=== PATIENT | female | born 1945 | race Caucasian/White ===

== ENCOUNTER → 2016-10-26 | Outpatient (CLI) | payer MEDICARE | LOC: RAD 08:11 | PROVIDERS: ATTEND Specialist | DX: R10.9 Unspecified abdominal pain (principal) | CPT/HCPCS: 74177 ==

== ENCOUNTER → 2016-11-13 | Outpatient (CLI) | payer MEDICARE ==
[~2016-11-13] MED LIST: AMINOPHYLLINE INJ/PF 250 MG/10 ML SDV IV ONE; REGADENOSON INJ 0.4 MG/5 ML DISP.SYRIN IV ONE
--- NOTE | 2016-11-14 07:43 | RADIOLOGY REPORT ---
STRESS TEST REPORT PATIENT NAME: ABRAHAM PAYTON ROOM#: DATE OF SERVICE: 11/13/16 AGE: 71Y ORDER#: [id number] REFERRING MD: JESSICA BRUNO M.D. INDICATION: Assessment of exertional dyspnea. Patient has a dilated aortic sinus, which could potentially involve coronary orifices. Therefore, rule out coronary artery disease. PROCEDURE PERFORMED REST/STRESS SINGLE ISOTOPE CARDIOLITE SPECT IMAGING WITH IV LEXISCAN STRESS AND GATED SPECT IMAGING CLINICAL HISTORY This is a 71 year old female with no known coronary artery disease, but recently has been having exertional dyspnea on climbing denominational steps and is known to have dilated aortic sinus. This could potentially involve coronary orifices. PROCEDURE The patient received IV Lexiscan 0.4 mg infused over 10 seconds and flushed. The resting heart rate was 67 bpm and increased to 92 bpm at end infusion. Resting blood pressure was 122/80 and increased to 140/70 at end infusion. The patient had symptoms of shortness of breath and no chest discomfort. No nausea or headache. Resting 12 lead EKG showed normal sinus rhythm at 68 bpm, mild nonspecific inferior ST changes. At end infusion, no ST changes were seen. ST-T wave changes were seen. Myocardial perfusion imaging was performed at rest 60 minutes following injection of 9.1 mCi Cardiolite. 10 seconds after IV Lexiscan injection, the patient was injected with 31.9 mCi Cardiolite and flushed. Gated post stress tomographic imaging was performed 60 minutes after stress. FINDINGS The overall quality of the study is fair. There was breast attenuation on the rest and stress images. The left ventricular cavity is noted to be normal in size on both the rest and stress studies. There is evidence of transient ischemic dilatation of the left ventricle visually. The computer calculated 1.07. SPECT images showed a moderate area of moderate reversible ischemia in the apex, apical anteroseptal wall, and apical anterior wall of the left ventricle. There was no fixed perfusion defect. Gated SPECT imaging showed a reduced contraction with normal motion of the apex, apical anteroseptal wall, apical anterior wall. The left ventricular ejection fraction was calculated to be 0.69. SUMMARY OF FINDINGS/IMPRESSION: 1. MYOCARDIAL PERFUSION IMAGING IS ABNORMAL. 2. THERE IS A MODERATE AREA OF MODERATE REVERSIBLE ISCHEMIA IN THE APEX, APICAL ANTERIOR WALL, AND APICAL ANTEROSEPTAL WALL WITH 3. NO FIXED PERFUSION DEFECTS. OVERALL, 4. LEFT VENTRICULAR SYSTOLIC FUNCTION WAS VERY NORMAL AT 0.69 AND 5. THERE WAS REDUCED CONTRACTION IN THE ABOVE MENTIONED ISCHEMIC AREA. 6. NO PRIOR STUDY on file FOR COMPARISON. INTERPRETING PHYSICIAN: JESSICA BRUNO M.D. /: [facility] TT: [id number] ID: [id number] /: [id number] TD: [id number] JOB: [id number] cc:JESSICA BRUNO M.D. > MTDVitaliy
== END ==
LOC: RAD 06:22
PROVIDERS: ATTEND Internal Medicine Cardiovascular Disease
DX: R07.2 Precordial pain (principal)
CPT/HCPCS: 93017; 78452; A9500; J2785; J0280; Q9969

== ENCOUNTER 2017-03-12 07:25 | Day surgery (SDC) | payer MEDICARE ==
--- NOTE | 2017-03-07 13:42 | HISTORY AND PHYSICAL E ---
History and Physical NAME: ABRAHAM PAYTON : 1945 AGE: 71Y ADMITTED: 03/12/2017 ROOM: CHIEF COMPLAINT: Reflux, abdominal pain, history of gastric polyp. HISTORY OF PRESENT ILLNESS: The patient is known to me over the years. She does have benign gastric polyp. She underwent upper endoscopy in 2011. The patient has no ulcers, atypical chest pain. She does have history of irritable bowel syndrome with diarrhea. Cardiac cath; no evidence of coronary artery disease. She does have a history of gastric polyps. Cardiac enzymes negative. Colonoscopy in 2010 showed adenomatous polyp, transverse colon; sigmoid polyp and sigmoid polyp adenoma. The patient did have multiple upper scopes and colonoscopies. ALLERGIES: MACROBID. PHYSICAL EXAMINATION: VITAL SIGNS: Blood pressure 130/80, pulse 80, respirations 20, temp is 98. HEAD, EYES, EARS, NOSE, THROAT: Normal. NECK: Supple. CARDIOVASCULAR: Normal. LUNGS: Clear. ABDOMEN: Soft. NEUROLOGIC: Exam negative. CONCLUSION: 1. Gastroesophageal reflux. 2. Abdominal pain. 3. History of adenoma, left adrenal. 4. Question abdominal aortic aneurysm. 5. Gastric polyp. 6. Diverticulosis. PLAN: Upper scope, 03/12. DICTATING PHYSICIAN: BLUE CARDONA M.D. [id number] PHY#: [id number] ID: [id number] JOB#: [id number] ACCT: [id number] cc:BLUE CARDONA M.D. >
[2017-03-12] MEDS ORDERED: ONDANSETRON HCL INJ/PF 4 MG/2 ML SDV ONE (07:33)
[2017-03-12] MEDS ORDERED: GLYCOPYRROLATE INJ 0.4 MG/2 ML VIAL ONE (07:33)
[2017-03-12] MEDS ORDERED: NALOXONE HCL INJ/PF 0.4 MG/1 ML SDV ONE (07:33)
[2017-03-12] MEDS ORDERED: FENTANYL CITRATE INJ/PF 100 MCG/2 ML AMPUL ONE (07:34)
[2017-03-12] MEDS ORDERED: EPINEPHRINE INJ 1 MG/10 ML DISP.SYRIN ONE (07:35)
[2017-03-12] MEDS ORDERED: FLUMAZENIL INJ 0.5 MG/5 ML VIAL IV ONE (07:35)
[2017-03-12] MEDS: MIDAZOLAM 2 MG/2 ML INJ ONE ×2 (08:17→08:21)
[2017-03-12 09:31] VITALS: BP 110/65
[2017-03-12 09:45] LABS: ABSOLUTE EOSINOPHILS # (AUTO) 0.1 10^3/uL (0.0-0.6); ABSOLUTE MONOCYTES (AUTO) 0.3 10^3/uL (0.1-1.4); ABSOLUTE NEUT (AUTO) 2.4 10^3/uL (1.7-8.2); BASOPHILS % (AUTO) 0.8 % (0-2); EOSINOPHILS % (AUTO) 1.7 % (0-6); HEMATOCRIT 35.7 % (36.0-47.0); HEMOGLOBIN 12.1 g/dL (12.0-15.5); HGB HCT DIFFERENCE 0.6; LYMPHOCYTES % (AUTO) 26.7 % (13-45); MEAN CORPUSCULAR HEMOGLOBIN 32.2 pg (27.0-33.4); MEAN CORPUSCULAR HGB CONC 33.9 g/dL (32.0-36.0); MEAN CORPUSCULAR VOLUME 95 fl (80-97); MONOCYTES % (AUTO) 7.3 % (3-13); RED BLOOD COUNT 3.76 10^6/uL (3.72-5.28); SEGMENTED NEUTROPHILS % (AUTO) 63.5 % (42-78); WHITE BLOOD COUNT 3.8 10^3/uL (4.0-10.5)
[2017-03-12 10:00] LABS: ALANINE AMINOTRANSFERASE 44 U/L (9-52); ALKALINE PHOSPHATASE 48 U/L (38-126); AMYLASE 49 U/L (30-110); ANION GAP 9 (5-19); ASPARTATE AMINO TRANSFERASE 27 U/L (14-36); BILIRUBIN,DIRECT 0.2 mg/dL (0.0-0.4); BILIRUBIN,TOTAL 0.9 mg/dL (0.2-1.3); BLOOD UREA NITROGEN 22 mg/dL (7-20); CALCIUM 9.4 mg/dL (8.4-10.2); CARBON DIOXIDE 28 mmol/L (22-30); CHLORIDE 105 mmol/L (98-107); CREATININE RESULT 0.72 mg/dL (0.52-1.25); GLUCOSE 103 mg/dL (75-110); LIPASE 44.8 U/L (23-300); POTASSIUM 3.8 mmol/L (3.6-5.0); SODIUM 141.6 mmol/L (137-145)
[2017-03-12 10:33] LABS: CARCINOEMBRYONIC ANTIGEN 1.1 ng/mL (<3.0)
--- NOTE | 2017-03-12 12:05 | DISCHARGE SUMMARY E ---
Discharge Summary NAME: ABRAHAM PAYTON : 1945 AGE: 71Y ADMITTED: 03/12/2017 DISCHARGED: 03/12/2017 PROCEDURE: EGD and biopsy. HISTORY: Patient is a 71-year-old female who presents with abdominal pain. She does have a remote history of gastric polyp. Underwent upper scope today. It shows no ulcers. She did have mild gastritis, mild esophagitis, mild duodenitis. The previous gastric polyp was not visualized on today's exam. It is usually in the antrum. I just did not see any polyp. No evidence of malignancy. Biopsy obtained for H. pylori. DISCHARGE PLAN: We will obtain lab studies. We will obtain amylase, lipase, chem profile, and CBC. Patient to see us in the office in the next few days. She does have history of adenoma polyps. We will obtain CA19-9 and CEA. DICTATING PHYSICIAN: BLUE CARDONA M.D. [id number] PHY#: [id number] ID: [id number] JOB#: [id number] ACCT: [id number] cc:BLUE CARDONA M.D. >
--- NOTE | 2017-03-12 12:06 | OPERATIVE REPORT E ---
Operative Report NAME: ABRAHAM PAYTON : 1945 AGE: 71Y DATE OF SURGERY: ROOM: PREOPERATIVE DIAGNOSIS: Abdominal pain, history of gastric polyp. POSTOPERATIVE DIAGNOSIS: Esophagitis, mild. Gastritis, mild. Duodenitis, mild. OPERATION: Esophagoscopy, gastroscopy, duodenoscopy. SURGEON: BLUE CARDONA M.D. ANESTHESIA: Versed 3, fentanyl 50. TISSUE REMOVED OR ALTERED: Gastric biopsy. PROCEDURE: The baby scope was passed under guided vision. No difficulties. Esophagoscopy: Junction at 40. Mild esophagitis. No stricture, no hernia, no malignancy. Gastroscopy: Mild diffuse gastritis. Some small amount of food retained in the stomach. Yellowish food material in the stomach. The patient has definite submucosal gastric polyp in the past; today, I just could not see the gastric polyp. There was some gastritis. Biopsy obtained for H. pylori. Duodenoscopy: The bulb was fairly well visualized and shows mild duodenitis. Descending duodenum, mild duodenitis. CONCLUSION: No ulcers. Mild esophagitis. Mild gastritis. Mild duodenitis. The patient tolerated the procedure and will be discharged in stable condition. DICTATING PHYSICIAN: BLUE CARDONA M.D. [id number] Y#: [id number] ID: [id number] JOB#: [id number] ACCT: [id number] cc:BLUE CARDONA M.D. >
== END 2017-03-12 09:35 | disposition home or self-care (01) ==
LOC: END 07:25
PROVIDERS: ATTEND Specialist
PROC: 0DB68ZX Excision of Stomach, Via Natural or Artificial Opening Endoscopic, Diagnostic (ICD-10-PCS; principal; 2017-03-12 08:00)
DX: K31.7 Polyp of stomach and duodenum (principal); K21.0 Gastro-esophageal reflux disease with esophagitis; K31.9 Disease of stomach and duodenum, unspecified; K29.80 Duodenitis without bleeding; R97.8 Other abnormal tumor markers; Z88.1 Allergy status to other antibiotic agents; K58.9 Irritable bowel syndrome, unspecified
CPT/HCPCS: 43239; 36415; 86301; 82150; 82378; 83690; 85025; 80053; 88342 ×2; 88305 ×2; J2250; J3010; J0171; J2310; J2405; J3490

== ENCOUNTER 2018-06-06 18:00 | Observation (INO) | payer MEDICARE ==
[2018-06-06] MEDS ORDERED: ASPIRIN 81 MG TABLET, CHEWABLE PO ONE (18:01)
[2018-06-06 18:32] LABS: ABSOLUTE EOSINOPHILS # (AUTO) 0.1 10^3/uL (0.0-0.6); ABSOLUTE MONOCYTES (AUTO) 0.3 10^3/uL (0.1-1.4); ABSOLUTE NEUT (AUTO) 5.3 10^3/uL (1.7-8.2); BASOPHILS % (AUTO) 0.4 % (0-2); EOSINOPHILS % (AUTO) 0.8 % (0-6); HEMATOCRIT 35.2 % (36.0-47.0); LYMPHOCYTES % (AUTO) 14.5 % (13-45); MEAN CORPUSCULAR HEMOGLOBIN 31.2 pg (27.0-33.4); MEAN CORPUSCULAR HGB CONC 34.1 g/dL (32.0-36.0); MEAN CORPUSCULAR VOLUME 92 fl (80-97); PLATELET COUNT 210 10^3/uL (150-450); RED BLOOD COUNT 3.84 10^6/uL (3.72-5.28); RED CELL DISTRIBUTION WIDTH 13.4 % (11.5-14.0); SEGMENTED NEUTROPHILS % (AUTO) 79.3 % (42-78); TOTAL CELLS COUNTED % (AUTO) 100 %; WHITE BLOOD COUNT 6.7 10^3/uL (4.0-10.5)
--- NOTE | 2018-06-06 18:40 | RADIOLOGY REPORT (SQ) ---
EXAM DESCRIPTION: CHEST SINGLE VIEW COMPLETED DATE/TIME: 06/06/2018 6:30 pm REASON FOR STUDY: cp COMPARISON: None. EXAM PARAMETERS: NUMBER OF VIEWS: One view. TECHNIQUE: Single frontal radiographic view of the chest acquired. RADIATION DOSE: NA LIMITATIONS: None. FINDINGS: LUNGS AND PLEURA: No opacities, masses or pneumothorax. No pleural effusion. MEDIASTINUM AND HILAR STRUCTURES: No masses. Contour normal. HEART AND VASCULAR STRUCTURES: Heart normal in size. Normal vasculature. BONES: No acute findings. HARDWARE: None in the chest. OTHER: No other significant finding. IMPRESSION: NO ACUTE RADIOGRAPHIC FINDING IN THE CHEST. TECHNICAL DOCUMENTATION: JOB ID: [id number] 1925 [employer]- All Rights Reserved Reading location - IP/workstation name: [email or web address]
--- NOTE | 2018-06-06 18:51 | ER Document Report ---
ED Cardiac - General Mode of Arrival: Medic Information source: Patient, Relative TRAVEL OUTSIDE OF THE [place] IN LAST 30 DAYS: No <DAWIT HERBERT - Last Filed: 06/06/18 19:59> <ARMANI VIEYRA - Last Filed: 06/06/18 22:52> - General Stated Complaint: CHEST PAIN Time Seen by Provider: 06/06/18 18:41 Notes: 72 y.o female with HTN for which she takes medications presents to the ED via EMS with epigastric abd/ central CP radiating to her back of sudden onset around 1630/1700. Pt reports that she took 3 Nitroglycerins that were nearing their expiration date at home before calling EMS who gave her 325mg Aspirin en route. She reports that she has her Nitroglycerine on hand for esophageal spasms. Pt denies any relief from the Nitroglycerin. She reports taking 325mg Aspirin daily due to DVT to her lower extremity after having spinal stenosis surgery in January 2018 to her L5-S1. Pt's De Ionizer Operator is Dr. Heaton. Pt's PCP is Dr. Nichol Patrick in [place]. Pt reports a PSHx of cholecystectomy, hysterectomy and left adrenal gland removal. Pt also reports a PMHx of scoliosis, thoracic aortic aneurysm and mitral valve insufficiency. She denies taking any medications for HLD or any hx of CAD. Pt had a normal cardiac catheterization in 2011. She had a nuclear stress test in October of last year with Dr. Heaton that did not read to be normal. (DAWIT HERBERT) This 72-year-old female patient reports she was sitting at rest when she had onset of severe epigastric chest pain radiating into the back about 4:30 PM today. She does have a history of esophageal spasm, but states this was much different and that her esophageal spasm discomfort starts in the epigastrium and works its way up her chest toward the throat. This was also different in that she became nauseous and had some vomiting. She took 3 of her nitroglycerin which she has for her esophageal spasm, and that may have helped some. She states the nitroglycerin is near expiration date and is vague about whether or not they tasted like they were fresh enough to be effective. The patient did have a negative cardiac cath in 2011 as part of her epigastric workup, and subsequently had endoscopy and a diagnosis of esophageal spasm. In October 2016 Dr. Heaton did a Cardiolite stress test due to exertional dyspnea and it states she had a dilated aortic sinus. The Cardiolite stress test was abnormal with moderate area of moderate reversible ischemia in the apex, apical anterior wall, and apical anteroseptal wall. There is no fixed perfusion defects. There was reduced contraction in the above-mentioned ischemic areas. She also reports she was supposed to see Dr. Heaton on Saturday to sheepskin pickler a Holter monitor. (ARMANI VIEYRA) - Related Data Allergies/Adverse Reactions: nitrofurantoin [From Macrobid] Allergy (Severe, Verified 03/12/17 07:30) Difficulty breathing nitrofurantoin macrocrystalline [From Macrobid] Allergy (Severe, Verified 07:30) Difficulty breathing latex [Latex] Adverse Reaction (Mild, Verified 03/12/17 07:30) Blisters atorvastatin [From Lipitor] Adverse Reaction (Verified 03/12/17 07:30) MUSCLE CRAMPING tegaderm Allergy (Intermediate, Uncoded 03/08/17 14:33) Blisters bandaids Allergy (Mild, Uncoded 03/08/17 14:33) Rash Past Medical History - General Information source: Patient - Social History Smoking Status: Never Smoker Chew tobacco use (# tins/day): No Frequency of alcohol use: None Drug Abuse: None Lives with: Family Family History: Reviewed & Not Pertinent - Past Medical History Cardiac Medical History: Reports: Hx Hypertension, Other - Mitral valve insufficiency, Thoracic aortic aneurysm Musculoskeletal Medical History: Reports Hx Arthritis, Reports Other - scoliosis Past Surgical History: Reports: Hx Cholecystectomy - 1970s, Hx Hysterectomy, Other - Spinal stenosis L5-S1 (no fusion) in January 2018 - Immunizations Hx Diphtheria, Pertussis, Tetanus Vaccination: No Hx Pneumococcal Vaccination: 12/19/16 <DAWIT HERBERT - Last Filed: 06/06/18 19:59> - Past Medical History Cardiac Medical History: Reports: Other - Mitral valve insufficiency. Dilated aortic sinus. Past Surgical History: Reports: Other - January 2018 L5-S1 ligamentum flavum release for spinal stenosis <ARMANI VIEYRA - Last Filed: 06/06/18 22:52> Review of Systems - Review of Systems Constitutional: No symptoms reported EENT: No symptoms reported Cardiovascular: See HPI, Chest pain Respiratory: No symptoms reported Gastrointestinal: See HPI, Abdominal pain - epigastric pain Genitourinary: No symptoms reported Female Genitourinary: No symptoms reported Musculoskeletal: See HPI, Back pain Skin: No symptoms reported Hematologic/Lymphatic: No symptoms reported Neurological/Psychological: No symptoms reported -: Yes All other systems reviewed and negative <DAWIT HERBERT - Last Filed: 06/06/18 19:59> Physical Exam <DAWIT HERBERT - Last Filed: 06/06/18 19:59> <ARMANI VIEYRA - Last Filed: 06/06/18 22:52> - Vital signs Vitals: Temp Resp Pulse Ox 98.5 F 21 H 98 06/06/18 18:16 06/06/18 18:16 06/06/18 18:16 - Notes Notes: Physical Exam: General: Alert, appears well. HEENT: Normocephalic. Atraumatic. PERRL. Extraocular movements intact. Oropharynx clear. Neck: Supple. Non-tender. No bruits to neck. Respiratory: No respiratory distress. Clear and equal breath sounds bilaterally. Cardiovascular: Regular rate and rhythm. Chest wall non tender to palpation. Abdominal: Minimal epigastric tenderness to palpation. No distension. Normal Bowel Sounds. Back: Non-tender. No deformity or step off. Extremities: Moves all four extremities. Upper extremities: Normal inspection. Normal ROM. Lower extremities: Normal inspection. No edema. Normal ROM. Neurological: Normal cognition. AAOx3. Normal speech. Psychological: Normal affect. Normal Mood. Skin: Warm. Dry. Normal color. (DAWIT HERBERT) Course - Laboratory Result Diagrams: 06/06/18 18:20 06/06/18 18:20 <DAWIT HERBERT - Last Filed: 06/06/18 19:59> - Laboratory Result Diagrams: 06/06/18 18:20 06/06/18 18:20 - Diagnostic Test Radiology reviewed: Image reviewed, Reports reviewed - Chest x-ray is unremarkable. - EKG Interpretation by Dc EKG shows normal: Sinus rhythm, [place], Intervals, QRS Complexes, ST-T Waves Rate: Normal - 61 Heart block present: 1st Degree When compared to previous EKG there are: No significant change - Consults Dr. Heaton Time consulted: 22:10 Consulted provider: other - Recommends 23 hour observation based on history and abnormal Cardiolite stress test from last year. Dr. Ramey Time consulted: 10:45 Consulted provider: will come to ER <ARMANI VIEYRA - Last Filed: 06/06/18 22:52> - Vital Signs Vital signs: Temp Pulse Resp BP Pulse Ox 98.5 F 20 98/61 L 98 06/06/18 18:16 06/06/18 21:30 06/06/18 21:30 06/06/18 21:30 - Laboratory Laboratory results interpreted by me: 06/06/18 06/06/18 18:20 18:20 Hct 35.2 L Seg Neutrophils % 79.3 H BUN 24 H Est GFR (Non-Af Amer) 58 L Glucose 113 H AST 312 H ALT 195 H Discharge <DAWIT HERBERT - Last Filed: 06/06/18 19:59> - Discharge Admitting Provider: Hospitalist Unit Admitted: Telemetry <ARMANI VIEYRA - Last Filed: 06/06/18 22:52> - Discharge Clinical Impression: Elevated liver enzymes Chest pain Qualifiers: Chest pain type: unspecified Qualified Code(s): R07.9 - Chest pain, unspecified Condition: Stable Disposition: ADMITTED OBSERVATION Referrals: NICHOL CORMIER MD [Primary Care Provider] - Follow up as needed Scribe Attestation: 06/06/18 22:51 I personally performed the services described in the documentation, reviewed and edited the documentation which was dictated to the scribe in my presence, and it accurately records my words and actions. (ARMANI VIEYRA) Scribe Documentation - Scribe Written by Claudia:: Claudia Mcallister 06/06/18 [id number] acting as scribe for :: Ton <DAWIT HERBERT - Last Filed: 06/06/18 19:59>
[2018-06-06 18:55] LABS: ALANINE AMINOTRANSFERASE 195 U/L (9-52); ALKALINE PHOSPHATASE 74 U/L (38-126); ANION GAP 10 (5-19); ASPARTATE AMINO TRANSFERASE 312 U/L (14-36); BILIRUBIN,DIRECT 0.3 mg/dL (0.0-0.4); BILIRUBIN,TOTAL 0.9 mg/dL (0.2-1.3); BLOOD UREA NITROGEN 24 mg/dL (7-20); CALCIUM 9.5 mg/dL (8.4-10.2); CARBON DIOXIDE 29 mmol/L (22-30); CHLORIDE 104 mmol/L (98-107); CREATINE KINASE 56 U/L (30-135); GLUCOSE 113 mg/dL (75-110); POTASSIUM 3.8 mmol/L (3.6-5.0); TOTAL PROTEIN 6.4 g/dL (6.3-8.2)
[2018-06-06 19:06] LABS: CREATINE KINASE MB 0.64 ng/mL (<4.55)
[2018-06-06 19:08] LABS: TROPONIN I < 0.012 ng/mL
[2018-06-06 19:44] LABS: LIPASE 60.2 U/L (23-300)
[2018-06-06] MEDS ORDERED: METFORMIN HCL 500 MG TABLET PO ONE (22:34)
[2018-06-06] MEDS ORDERED: NORMAL SALINE 1000 ML 1,000 ML IV ONE (22:34)
[2018-06-06] MEDS ORDERED: MAG HYDROX/AL HYDROX/SIMETH SUSP 30 ML UDCUP PO PRN (22:41)
--- NOTE | 2018-06-07 00:58 | RADIOLOGY REPORT (SQ) ---
EXAM DESCRIPTION: CT CHEST ANGIOGRAPHY WITHOUT THEN WITH IV CONTRAST COMPLETED DATE/TME: 06/07/2018 00:00 CLINICAL HISTORY: 72 years Female, hypotension c chest pain Comparison: None. Technique: IV contrast. Coronal and sagittal reformat. 3d reconstruction. This exam was performed according to our departmental dose-optimization program, which includes automated exposure control, adjustment of the mA and/or kV according to patient size and/or use of iterative reconstruction technique.[facility]: Dose Right [facility]: CareDose [facility]: Dose Right [facility]: Teradose 4D [facility]: Smart Mass Appeal LIMITATIONS: None Findings: No pulmonary embolus. Nonspecific prominence of the right ventricle. Clear lungs. Cholecystectomy clips, colonic diverticulosis, common bile duct diameter 1.1 cm, partially imaged, moderate scoliotic curvature, moderate disc desiccation, 3.9 cm diameter aneurysmal enlargement of the ascending thoracic aorta small right apical pleural based scar. Small left lower lobar atelectasis or scar. Moderate vacuum disc desiccation of the upper lumbar spine. Subcentimeter likely benign left renal cysts not definitively characterized. Inferior neck, axillae, mediastinum, lungs, airway, lymphatics, heart, vasculature, upper abdomen, and musculoskeleton appear unremarkable. Impression: No pulmonary embolus. No acute cardiopulmonary findings.
[2018-06-07 03:47] LABS: CHOLESTEROL 173.08 mg/dL (0-200)
[2018-06-07 04:00] LABS: CREATINE KINASE MB 0.53 ng/mL (<4.55)
[2018-06-07 04:05] LABS: TROPONIN I < 0.012 ng/mL
[2018-06-07] MEDS: HEPARIN SOD (PORCINE) 5,000 UNIT/ML 1 ML SYRINGE SUBCUT SCH ×3 (05:59→22:28)
--- NOTE | 2018-06-07 06:51 | PDOC H&P ---
History of Present Illness Admission Date/PCP: 06/06/18 23:27 MARYELLEN CORMIER MD Patient complains of: Epigastric pain History of Present Illness: ABRAHAM PAYTON is a 72 year old female with a past medical history of aortic aneurysm, spinal stenosis, esophageal spasm, and scoliosis. She presents with sudden onset of 5 out of 5 epigastric pain lasting 30 minutes. Associated with nausea and vomiting of gastric content, nonradiating without palpitations shortness of breath or diaphoresis. No recent meal, no improvement after sublingual nitroglycerin 3 and aspirin. She is brought to the emergency room for evaluation pain-free found to have unremarkable workup with exception to elevation of LFTs and referred to the hospitalist for admission. She denies recent change in medications, suspect meals and otherwise feels well. Patient reveals normal cardiac catheterization 8 months ago. Past Medical History Cardiac Medical History: Reports: Hypertension, Other - Mitral valve insufficiency. Dilated aortic sinus. Denies: Coronary Artery Disease, Myocardial Infarction Pulmonary Medical History: Denies: Asthma, Bronchitis, Chronic Obstructive Pulmonary Disease (COPD), Pneumonia Neurological Medical History: Denies: Seizures GI Medical History: Denies: Hepatitis, Hiatal Hernia Musculoskeltal Medical History: Reports: Arthritis, Other - scoliosis Psychiatric Medical History: Denies: Depression, Substance Abuse, Tobacco Dependency Hematology: Denies: Anemia, Sickle Cell Disease Past Surgical History Past Surgical History: Reports: Cholecystectomy - , Hysterectomy, Other - January 2018 L5-S1 ligamentum flavum release for spinal stenosis Denies: Amputation, Mastectomy, Pacemaker Social History Information Source: Patient, [facility] Records Lives with: Family Smoking Status: Never Smoker Frequency of Alcohol Use: None Hx Recreational Drug Use: No Drugs: None Hx Prescription Drug Abuse: No - Advance Directive Resuscitation Status: Full Code Family History Family History: Hypertension Parental Family History Reviewed: Yes Children Family History Reviewed: Yes Sibling(s) Family History Reviewed.: Yes Medication/Allergy Home Medications: Amlodipine Besylate [Norvasc 2.5 mg Tablet] 5 mg PO DAILY 09/05/12 Ascorbic Acid [Vitamin C] 1,500 mg PO DAILY 09/05/12 Triamterene/Hydrochlorothiazid [Maxzide 37.5 mg-25 mg Tablet] 0.5 tab PO DAILY 09/05/12 Aspirin [Aspirin 81 mg Chewable Tablet] 81 mg PO DAILY 06/09/13 Calcium/Magnesium/Vit D3 [Calcium 500 mg Tablet] 500 mg PO .EVERYOTHERDAY Losartan Potassium 50 mg PO DAILY 06/22/15 Diphenoxylate HCl/Atropine [Lomotil Tablet] 1 each PO PRN PRN 03/12/17 Allergies/Adverse Reactions: nitrofurantoin [From Macrobid] Allergy (Severe, Verified 03/12/17 07:30) Difficulty breathing nitrofurantoin macrocrystalline [From Macrobid] Allergy (Severe, Verified 07:30) Difficulty breathing latex [Latex] Adverse Reaction (Mild, Verified 03/12/17 07:30) Blisters atorvastatin [From Lipitor] Adverse Reaction (Verified 03/12/17 07:30) MUSCLE CRAMPING tegaderm Allergy (Intermediate, Uncoded 03/08/17 14:33) Blisters bandaids Allergy (Mild, Uncoded 03/08/17 14:33) Rash Review of Systems Constitutional: ABSENT: chills, fever(s), headache(s), weight gain, weight loss Eyes: ABSENT: visual disturbances Ears: ABSENT: hearing changes Cardiovascular: ABSENT: chest pain, dyspnea on exertion, edema, orthropnea, palpitations Respiratory: ABSENT: cough, hemoptysis Gastrointestinal: ABSENT: abdominal pain, constipation, diarrhea, hematemesis, hematochezia, nausea, vomiting Genitourinary: ABSENT: dysuria, hematuria Musculoskeletal: ABSENT: joint swelling Integumentary: ABSENT: rash, wounds Neurological: ABSENT: abnormal gait, abnormal speech, confusion, dizziness, focal weakness, syncope Psychiatric: ABSENT: anxiety, depression, homidical ideation, suicidal ideation Endocrine: ABSENT: cold intolerance, heat intolerance, polydipsia, polyuria Hematologic/Lymphatic: ABSENT: easy bleeding, easy bruising Physical Exam Vital Signs: Temp Pulse Resp BP Pulse Ox 98.6 F 68 14 122/63 99 06/07/18 03:19 06/07/18 03:19 06/07/18 03:19 06/07/18 03:19 06/07/18 03:19 Intake & Output 06/05/18 06/06/18 06/07/18 11:59 11:59 11:59 Weight 67 kg General appearance: PRESENT: no acute distress, well-developed, well-nourished Head exam: PRESENT: atraumatic, normocephalic Eye exam: PRESENT: conjunctiva pink, EOMI, PERRLA. ABSENT: scleral icterus Ear exam: PRESENT: normal external ear exam Mouth exam: PRESENT: moist, tongue midline Neck exam: ABSENT: carotid bruit, JVD, lymphadenopathy, thyromegaly Respiratory exam: PRESENT: clear to auscultation desiree. ABSENT: rales, rhonchi, wheezes Cardiovascular exam: PRESENT: RRR. ABSENT: diastolic murmur, rubs, systolic murmur Pulses: PRESENT: normal dorsalis pedis pul Vascular exam: PRESENT: normal capillary refill GI/Abdominal exam: PRESENT: normal bowel sounds, soft. ABSENT: distended, guarding, mass, organolmegaly, rebound, tenderness Rectal exam: PRESENT: deferred Extremities exam: PRESENT: full ROM. ABSENT: calf tenderness, clubbing, pedal edema Neurological exam: PRESENT: alert, awake, oriented to person, oriented to place , oriented to time, oriented to situation, CN II-XII grossly intact. ABSENT: motor sensory deficit Psychiatric exam: PRESENT: appropriate affect, normal mood. ABSENT: homicidal ideation, suicidal ideation Skin exam: PRESENT: dry, intact, warm. ABSENT: cyanosis, rash Results Laboratory Results: 06/07/18 03:20 Triglycerides 58 Cholesterol 173.08 LDL Cholesterol Direct 69 VLDL Cholesterol 68.72 HDL Cholesterol 71 06/07/18 06/07/18 03:20 03:20 Creatine Kinase 44 CK-MB (CK-2) 0.53 Troponin I < 0.012 Impressions: Chest X-Ray 06/06/18 18:01 IMPRESSION: NO ACUTE RADIOGRAPHIC FINDING IN THE CHEST. Assessment & Plan - Diagnosis (1) Epigastric pain Is this a current diagnosis for this admission?: Yes Plan: Possibly secondary to esophageal spasm versus acute hepatitis of unknown etiology. Follow-up LFTs, symptomatic management (2) Elevated liver enzymes Is this a current diagnosis for this admission?: Yes Plan: Unclear etiology hepatitis. Status post cholecystectomy, cholestatic pattern, follow-up repeat LFTs. Proceed with in-depth workup if persistently elevated - Time Time Spent: 30 to 50 Minutes - Inpatient Certification Medical Necessity: Need Close Monitoring Due to Risk of Patient Decompensation
--- NOTE | 2018-06-07 07:14 | EKG REPORT ---
SEVERITY:- ABNORMAL ECG - SINUS RHYTHM FIRST DEGREE AV BLOCK NONSPECIFIC ST-T CHANGES ANTEROLATERAL LEADS : Confirmed by: Yazan Heaton MD 07-Jun-2018 07:14:11
[2018-06-07 07:35] LABS: ALBUMIN 3.5 g/dL (3.5-5.0); ALKALINE PHOSPHATASE 99 U/L (38-126); TOTAL PROTEIN 5.7 g/dL (6.3-8.2)
[2018-06-07 07:46] LABS: ALANINE AMINOTRANSFERASE 1320 U/L (9-52); ASPARTATE AMINO TRANSFERASE 1454 U/L (14-36)
[2018-06-07 10:23] LABS: CREATINE KINASE MB 0.49 ng/mL (<4.55)
[2018-06-07 10:29] LABS: TROPONIN I < 0.012 ng/mL
[2018-06-07] MEDS: DOCUSATE SODIUM 100 MG CAPSULE PO SCH ×2 (10:46→17:12)
--- NOTE | 2018-06-07 16:19 | PDOC PROGRESS REPORT ---
Subjective Progress Note for:: 06/14/18 Subjective:: Patient admitted with sudden onset epigastric pain lasting about 30 minutes this is associated with nausea and vomiting. All this has subsided. She was found to have an elevated LFT and so was admitted for further evaluation Reason For Visit: CHEST PAIN, ELEVATED LIVER ENZYMES Physical Exam Vital Signs: Temp Pulse Resp BP Pulse Ox 98.3 F 65 16 104/55 L 98 06/07/18 11:11 06/07/18 14:00 06/07/18 11:11 06/07/18 11:11 06/07/18 11:11 Intake & Output 06/06/18 06/07/18 06/08/18 06:59 06:59 06:59 Intake Total 680 Balance 680 Weight 67 kg General appearance: PRESENT: no acute distress, well-developed Head exam: PRESENT: atraumatic, normocephalic Eye exam: PRESENT: conjunctiva pink, EOMI, PERRLA. ABSENT: scleral icterus Ear exam: PRESENT: normal external ear exam Mouth exam: PRESENT: moist, tongue midline Neck exam: ABSENT: carotid bruit, JVD, lymphadenopathy, thyromegaly Respiratory exam: PRESENT: clear to auscultation desiree. ABSENT: rales, rhonchi, wheezes Cardiovascular exam: PRESENT: RRR. ABSENT: diastolic murmur, rubs, systolic murmur Pulses: PRESENT: normal dorsalis pedis pul Vascular exam: PRESENT: normal capillary refill GI/Abdominal exam: PRESENT: normal bowel sounds, soft. ABSENT: distended, guarding, mass, organolmegaly, rebound, tenderness Rectal exam: PRESENT: deferred Extremities exam: PRESENT: full ROM. ABSENT: calf tenderness, clubbing, pedal edema Neurological exam: PRESENT: alert, awake, oriented to person, oriented to place , oriented to time, oriented to situation, CN II-XII grossly intact. ABSENT: motor sensory deficit Psychiatric exam: PRESENT: appropriate affect, normal mood. ABSENT: homicidal ideation, suicidal ideation Skin exam: PRESENT: dry, intact, warm. ABSENT: cyanosis, rash Results Laboratory Results: 06/07/18 06/07/18 03:20 03:20 Total Bilirubin 2.0 H AST 1454 H ALT 1320 H Alkaline Phosphatase 99 Total Protein 5.7 L Albumin 3.5 Triglycerides 58 Cholesterol 173.08 LDL Cholesterol Direct 69 VLDL Cholesterol 68.72 HDL Cholesterol 71 08/18/18 08/18/18 08/18/18 03:20 03:20 09:40 Creatine Kinase 44 CK-MB (CK-2) 0.53 0.49 Troponin I < 0.012 < 0.012 Impressions: Chest X-Ray 06/06/18 18:01 IMPRESSION: NO ACUTE RADIOGRAPHIC FINDING IN THE CHEST. Assessment & Plan - Time Time Spent with patient: 15-24 minutes Medications reviewed and adjusted accordingly: Yes Anticipated discharge: Home Within: within 72 hours - Inpatient Certification Based on my medical assessment, after consideration of the patient's comorbidities, presenting symptoms, or acuity I expect that the services needed warrant INPATIENT care.: Yes Medical Necessity: Risk of Complication if Not Cared For in Hospital, Risk of Diagnosis Which Will Require Inpatient Eval/Care/Monitoring - Plan Summary Plan Summary: Patient elevated liver function tests have more than tripled over the last 24 hours. She is status post cholecystectomy so it is really unclear what this is all about especially the acute increase in liver pattern function test. Alkaline phosphatase is barely elevated. Will go ahead and order a sonogram anyway and patient may need an MRI of the abdomen subsequently. We will also repeat LFTs in a.m. 2. Epigastric pain most likely secondary to the elevated liver enzymes. She does have esophageal spasm but patient was quite adamant and obviously right in saying that the pain seemed to be a different from her usual spasm
[2018-06-08] MEDS: HEPARIN SOD (PORCINE) 5,000 UNIT/ML 1 ML SYRINGE SUBCUT SCH ×3 (06:09→21:40)
[2018-06-08 07:35] LABS: ALBUMIN 3.6 g/dL (3.5-5.0); ALKALINE PHOSPHATASE 118 U/L (38-126); ANION GAP 9 (5-19); ASPARTATE AMINO TRANSFERASE 717 U/L (14-36); BILIRUBIN,TOTAL 2.4 mg/dL (0.2-1.3); BLOOD UREA NITROGEN 21 mg/dL (7-20); CALCIUM 8.9 mg/dL (8.4-10.2); CARBON DIOXIDE 26 mmol/L (22-30); CHLORIDE 108 mmol/L (98-107); GLUCOSE 93 mg/dL (75-110); POTASSIUM 3.9 mmol/L (3.6-5.0); SODIUM 143.4 mmol/L (137-145)
[2018-06-08 08:19] LABS: ALANINE AMINOTRANSFERASE 1098 U/L (9-52)
[2018-06-08] MEDS: DOCUSATE SODIUM 100 MG CAPSULE PO SCH ×2 (09:40→17:13)
--- NOTE | 2018-06-08 13:40 | PDOC PROGRESS REPORT ---
Subjective Progress Note for:: 06/08/18 Subjective:: Patient admitted with sudden onset epigastric pain lasting about 30 minutes this is associated with nausea and vomiting. All this has subsided. She was found to have an elevated LFT and so was admitted for further evaluation Patient currently denies any nausea vomiting or diarrhea. She does give a history of chronic diarrhea but states this is no worse than her usual. She denies any chest pain. Reason For Visit: CHEST PAIN, ELEVATED LIVER ENZYMES Physical Exam Vital Signs: Temp Pulse Resp BP Pulse Ox 97.9 F 62 14 119/62 94 06/08/18 08:00 06/08/18 08:00 06/08/18 08:00 06/08/18 08:00 06/08/18 08:00 Intake & Output 06/07/18 06/08/18 06/09/18 06:59 06:59 06:59 Intake Total 680 118 Balance 680 118 Weight 67 kg 66.2 kg General appearance: PRESENT: no acute distress, well-developed, well-nourished Head exam: PRESENT: atraumatic, normocephalic Eye exam: PRESENT: conjunctiva pink, EOMI, PERRLA. ABSENT: scleral icterus Ear exam: PRESENT: normal external ear exam Mouth exam: PRESENT: moist, tongue midline Neck exam: ABSENT: carotid bruit, JVD, lymphadenopathy, thyromegaly Respiratory exam: PRESENT: clear to auscultation desiree. ABSENT: rales, rhonchi, wheezes Cardiovascular exam: PRESENT: RRR. ABSENT: diastolic murmur, rubs, systolic murmur Pulses: PRESENT: normal dorsalis pedis pul Vascular exam: PRESENT: normal capillary refill GI/Abdominal exam: PRESENT: normal bowel sounds, soft. ABSENT: distended, guarding, mass, organolmegaly, rebound, tenderness Rectal exam: PRESENT: deferred Extremities exam: PRESENT: full ROM. ABSENT: calf tenderness, clubbing, pedal edema Neurological exam: PRESENT: alert, awake, oriented to person, oriented to place , oriented to time, oriented to situation, CN II-XII grossly intact. ABSENT: motor sensory deficit Psychiatric exam: PRESENT: appropriate affect, normal mood. ABSENT: homicidal ideation, suicidal ideation Skin exam: PRESENT: dry, intact, warm. ABSENT: cyanosis, rash Results Laboratory Results: 06/08/18 05:55 06/08/18 05:55 Sodium 143.4 Potassium 3.9 Chloride 108 H Carbon Dioxide 26 Anion Gap 9 BUN 21 H Creatinine 0.71 Est GFR ( Amer) > 60 Est GFR (Non-Af Amer) > 60 Glucose 93 Calcium 8.9 Total Bilirubin 2.4 H AST 717 H ALT 1098 H Alkaline Phosphatase 118 Total Protein 6.0 L Albumin 3.6 06/07/18 06/07/18 06/07/18 03:20 03:20 09:40 Creatine Kinase 44 CK-MB (CK-2) 0.53 0.49 Troponin I < 0.012 < 0.012 Impressions: Chest X-Ray 06/06/18 18:01 IMPRESSION: NO ACUTE RADIOGRAPHIC FINDING IN THE CHEST. Assessment & Plan - Diagnosis (1) Elevated liver enzymes Is this a current diagnosis for this admission?: Yes Plan: Etiology still unclear, hepatitis profile and US pending. Luckily AST/ALT on downward trend. Will monitor overnight and if continue to improve will plan to send home in am - Time Time Spent with patient: 15-24 minutes Medications reviewed and adjusted accordingly: Yes Anticipated discharge: Home Within: within 48 hours - Inpatient Certification Based on my medical assessment, after consideration of the patient's comorbidities, presenting symptoms, or acuity I expect that the services needed warrant INPATIENT care.: Yes Medical Necessity: Need Close Monitoring Due to Risk of Patient Decompensation, Risk of Complication if Not Cared For in Hospital
--- NOTE | 2018-06-08 17:07 | RADIOLOGY REPORT (SQ) ---
EXAM DESCRIPTION: U/S ABDOMEN COMPLETE W/O DOP COMPLETED DATE/TIME: 06/07/2018 6:52 pm REASON FOR STUDY: Abnormal LFT A41.9 SEPSIS, UNSPECIFIED ORGANISM R10.84 GENERALIZED ABDOMINAL SOLOMON N COMPARISON: CT scan 10/26/2016 TECHNIQUE: Dynamic and static grayscale images acquired of the abdomen and recorded on PACS. Additio nal selected color Doppler and spectral images recorded. LIMITATIONS: None. FINDINGS: PANCREAS: No masses. Visualized pancreatic duct normal caliber. LIVER: Fatty liver. No focal masses. LIVER VASCULATURE: Normal directional flow of the main portal vein and hepatic veins. GALLBLADDER: Surgically absent. ULTRASOUND-DETECTED MEJIA'S SIGN: Negative. INTRAHEPATIC DUCTS AND COMMON DUCT: CBD and intrahepatic ducts normal caliber. No filling defects. INFERIOR VENA CAVA: Normal flow. AORTA: No aneurysm. RIGHT KIDNEY: Normal size. Normal echogenicity. No solid or suspicious masses. No hydronephros is. No calcifications. LEFT KIDNEY: Partially obscured. No obvious pathology. SPLEEN: Normal size. No solid masses. PERITONEAL AND PLEURAL SPACES: No ascites or effusions. OTHER: No other significant finding. IMPRESSION: Post cholecystectomy. Fatty infiltration of the liver. TECHNICAL DOCUMENTATION: JOB ID: [id number] [employer]- All Rights Reserved Reading location - IP/workstation name: [email or web address]
[2018-06-09] MEDS: HEPARIN SOD (PORCINE) 5,000 UNIT/ML 1 ML SYRINGE SUBCUT SCH (06:01)
[2018-06-09 08:57] LABS: ALANINE AMINOTRANSFERASE 772 U/L (9-52); ALBUMIN 3.9 g/dL (3.5-5.0); ALKALINE PHOSPHATASE 111 U/L (38-126); ANION GAP 9 (5-19); ASPARTATE AMINO TRANSFERASE 279 U/L (14-36); BILIRUBIN,DIRECT 0.3 mg/dL (0.0-0.4); BILIRUBIN,TOTAL 1.1 mg/dL (0.2-1.3); BLOOD UREA NITROGEN 23 mg/dL (7-20); CALCIUM 9.1 mg/dL (8.4-10.2); CARBON DIOXIDE 25 mmol/L (22-30); CHLORIDE 109 mmol/L (98-107); GLUCOSE 93 mg/dL (75-110); POTASSIUM 3.9 mmol/L (3.6-5.0); SODIUM 143.3 mmol/L (137-145); TOTAL PROTEIN 6.3 g/dL (6.3-8.2)
[2018-06-09] MEDS: DOCUSATE SODIUM 100 MG CAPSULE PO SCH (09:04)
[2018-06-09] MEDS ORDERED: CALCIUM CARBONATE 250 MG/VITAMIN D3 125 UNIT TABLET PO SCH (10:00)
[2018-06-09] MEDS ORDERED: VITAMIN D3 PO SCH (10:00)
[2018-06-09] MEDS ORDERED: CALCIUM CARBONATE PO SCH (10:00)
--- NOTE | 2018-06-09 10:00 | PDOC DISCHARGE SUMMARY ---
General - Admit/Disc Date/PCP Admission Date/Primary Care Provider: 06/06/18 23:27 MARYELLEN CORMIER MD Discharge Date: 06/09/18 - Discharge Diagnosis (1) Elevated liver enzymes Is this a current diagnosis for this admission?: Yes (2) Hepatitis Is this a current diagnosis for this admission?: Yes Summary: Etiology unclear, possibly viral (3) CAD (coronary artery disease) Is this a current diagnosis for this admission?: No - Additional Information Resuscitation Status: Full Code Discharge Diet: Cardiac Discharge Activity: Activity As Tolerated Home Medications: Amlodipine Besylate [Norvasc 5 mg Tablet] 5 mg PO DAILY 06/07/18 Ascorbic Acid [C-1000] 1,000 mg PO DAILY 06/07/18 Calcium Carbonate/Vitamin D3 [Calcium 500 + Vit D Caplet] 2 tab PO DAILY Diphenoxylate HCl/Atrop Sulf [Lomotil 2.5 mg Tablet] 1 tab PO Q1HP PRN 06/07/18 Losartan Potassium [Cozaar 50 mg Tablet] 25 mg PO DAILY 06/07/18 Triamterene/Hydrochlorothiazid [Triamterene-Hctz 37.5-25 mg Tb] 0.5 tab PO DAILY 06/07/18 History of Present Illness History of Present Illness: ABRAHAM PAYTON is a 72 year old female with a past medical history of aortic aneurysm, spinal stenosis, esophageal spasm, and scoliosis. She presents with sudden onset of 5 out of 5 epigastric pain lasting 30 minutes. Associated with nausea and vomiting of gastric content , nonradiating without palpitations shortness of breath or diaphoresis. No recent meal, no improvement after sublingual nitroglycerin 3 and aspirin. She is brought to the emergency room for evaluation pain-free found to have unremarkable workup with exception to elevation of LFTs and referred to the hospitalist for admission. She denies recent change in medications, suspect meals and otherwise feels well. Patient reveals normal cardiac catheterization 8 months ago. Hospital Course Hospital Course: Acute respiratory failure with hypotension, patient presented with abdominal pain and epigastric pain. She was initially thought to have chest pain but chest pain was ruled out and there was no evidence of any acute coronary syndrome. Initially had transaminases with slightly elevated with the next day her AST actually went up to 1454 from 312 on admission. He has since decreased to 279 today. Bilirubin was also elevated and this has normalized. Alkaline phosphatase was within normal. Etiology of patient's hepatitis is really not known but this is likely related to her epigastric pain. Hepatitis profile was done but this is still currently pending. Abdominal CT reveals no significant findings. She is status post cholecystectomy and she does have an ascending thoracic aorta abdominal sonogram done revealed fatty infiltration of the liver but no further findings. Patient's abdominal pain actually resolved pretty quickly within 24 hours and she had no further GI symptoms. With improvement of her liver function test and with hemodynamic stability patient is being discharged home. She was told to hold her antihypertensives for the next few days as her blood pressure was borderline low while in hospital Physical Exam Vital Signs: Temp Pulse Resp BP Pulse Ox 98.4 F 65 12 101/59 L 96 06/09/18 03:40 06/09/18 07:00 06/09/18 03:40 06/09/18 03:40 06/09/18 03:40 Intake & Output 06/08/18 06/09/18 06/10/18 06:59 06:59 06:59 Intake Total 680 598 Balance 680 598 Weight 66.2 kg 65.8 kg General appearance: PRESENT: no acute distress, well-developed, well-nourished Head exam: PRESENT: atraumatic, normocephalic Eye exam: PRESENT: conjunctiva pink, EOMI, PERRLA. ABSENT: scleral icterus Ear exam: PRESENT: normal external ear exam Mouth exam: PRESENT: moist, tongue midline Neck exam: ABSENT: carotid bruit, JVD, lymphadenopathy, thyromegaly Respiratory exam: PRESENT: clear to auscultation desiree. ABSENT: rales, rhonchi, wheezes Cardiovascular exam: PRESENT: RRR. ABSENT: diastolic murmur, rubs, systolic murmur Pulses: PRESENT: normal dorsalis pedis pul Vascular exam: PRESENT: normal capillary refill GI/Abdominal exam: PRESENT: normal bowel sounds, soft. ABSENT: distended, guarding, mass, organolmegaly, rebound, tenderness Rectal exam: PRESENT: deferred Extremities exam: PRESENT: full ROM. ABSENT: calf tenderness, clubbing, pedal edema Neurological exam: PRESENT: alert, awake, oriented to person, oriented to place , oriented to time, oriented to situation, CN II-XII grossly intact. ABSENT: motor sensory deficit Psychiatric exam: PRESENT: appropriate affect, normal mood. ABSENT: homicidal ideation, suicidal ideation Skin exam: PRESENT: dry, intact, warm. ABSENT: cyanosis, rash Results Laboratory Results: 06/09/18 08:22 06/09/18 08:22 Sodium 143.3 Potassium 3.9 Chloride 109 H Carbon Dioxide 25 Anion Gap 9 BUN 23 H Creatinine 0.69 Est GFR ( Amer) > 60 Est GFR (Non-Af Amer) > 60 Glucose 93 Calcium 9.1 Total Bilirubin 1.1 AST 279 H ALT 772 H Alkaline Phosphatase 111 Total Protein 6.3 Albumin 3.9 06/07/18 06/07/18 06/07/18 03:20 03:20 09:40 Creatine Kinase 44 CK-MB (CK-2) 0.53 0.49 Troponin I < 0.012 < 0.012 Impressions: Chest X-Ray 06/06/18 18:01 IMPRESSION: NO ACUTE RADIOGRAPHIC FINDING IN THE CHEST. Abdomen Ultrasound 06/07/18 00:00 IMPRESSION: Post cholecystectomy. Fatty infiltration of the liver. Qualifiers - * PATIENT BEING DISCHARGED WITH ANY OF THE FOLLOWING DIAGNOSIS: No Plan Time Spent: Less than 30 Minutes
[2018-06-09 10:06] VITALS: BP 118/72
[2018-06-10 10:38] LABS: HEPATITIS A AB IGM Negative (Negative); HEPATITIS B CORE AB IGM Negative (Negative); HEPATITS B SURFACE ANTIGEN Negative (Negative)
[2018-06-10 14:57] LABS: HEPATITIS C VIRUS ANTIBODY <0.1 s/co ratio (0.0-0.9)
== END 2018-06-09 11:09 | disposition home or self-care (01) ==
LOC: ER 18:00 → EH 23:27 → 4N 06-07 01:32
PROVIDERS: ADMIT Internal Medicine; ATTEND Internal Medicine
DX: R74.8 Abnormal levels of other serum enzymes (principal); K75.9 Inflammatory liver disease, unspecified; I25.10 Atherosclerotic heart disease of native coronary artery without angina pectoris; R11.2 Nausea with vomiting, unspecified; R10.13 Epigastric pain; J96.00 Acute respiratory failure, unspecified whether with hypoxia or hypercapnia; I95.9 Hypotension, unspecified; K76.0 Fatty (change of) liver, not elsewhere classified; I10 Essential (primary) hypertension; K22.4 Dyskinesia of esophagus; I71.2 Thoracic aortic aneurysm, without rupture; M41.9 Scoliosis, unspecified; I44.0 Atrioventricular block, first degree; Z90.49 Acquired absence of other specified parts of digestive tract; Z98.890 Other specified postprocedural states; Z82.49 Family history of ischemic heart disease and other diseases of the circulatory system; Z79.899 Other long term (current) drug therapy
CPT/HCPCS: 93005; 99285; 36415 ×4; 82553 ×2; 82550 ×2; 83690; 85025; 80076; 80053 ×3; 84484 ×2; 80061; 80074; 71045; 76700; 71275; 93010; G0378 ×3; A9270 ×2; J1644 ×3; J3490 ×3

== ENCOUNTER 2018-11-20 08:03 | Day surgery (SDC) | payer MEDICARE ==
[~2018-11-20 08:03] MED LIST changes: -AMINOPHYLLINE INJ/PF 250 MG/10 ML SDV IV ONE; +KETOROLAC TROMETHAMINE 0.45% 4 DROP/0.4 ML DROPERETTE OD PRN; -REGADENOSON INJ 0.4 MG/5 ML DISP.SYRIN IV ONE
[2018-11-20] MEDS ORDERED: MIDAZOLAM 2 MG/2 ML INJ ONE (08:23)
[2018-11-20] MEDS: CYCLOPENTOLATE 0.2%/PHENYLEPHRINE 1% OPH SOLN 2 ML OD PRN ×3 (08:45→09:05)
[2018-11-20] MEDS: TROPICAMIDE 1% OPH SOLN 3 ML OD PRN ×3 (08:45→09:05)
[2018-11-20] MEDS: BESIFLOXACIN HCL 0.6% OPH SUSP 5 ML BOTTLE OD PRN ×4 (08:45→09:50)
[2018-11-20] MEDS: TETRACAINE HCL 0.5% OPH SOLN 4 ML OD PRN ×3 (08:45→09:24)
[2018-11-20] MEDS: LIDOCAINE 1% INJ-PF (10 MG/ML) 30 ML SDV ONE ×2 (09:35)
[2018-11-20] MEDS: CHONDR SU A NA/HYALUR INTRAOC KIT (SURGICARE) ONE ×2 (09:35)
[2018-11-20] MEDS: EPINEPHRINE INJ/PF 1 MG/1 ML AMPULE ONE ×2 (09:35)
--- NOTE | 2018-11-20 21:02 | [facility] OPERATIVE REPORT E ---
[facility] Operative Report NAME: ABRAHAM PAYTON AGE: 73Y DATE OF SURGERY: 11/20/18 ROOM: PREOPERATIVE DIAGNOSIS: CATARACT, RIGHT EYE. POSTOPERATIVE DIAGNOSIS: CATARACT, RIGHT EYE. OPERATION: Cataract extraction with insertion of an IOL of the right eye. SURGEON: PRACHI BENAIVDES M.D. ANESTHESIA: Topical. PROCEDURE: After obtaining appropriate consent, the patient's right eye was prepped and draped in sterile fashion as well as the surgeon in a sterile manner and cataract surgery was started. First a paracentesis blade was used to make a side-port incision. Viscoelastic was used to inflate the anterior chamber. Next a 2.4 mm incision was made with a 2.4 mm blade, clear corneal temporally. A continuous capsulorrhexis was made using a cystotome and Utrata forceps. Following this hydrodissection was carried out to make the lens fully loose and mobile and it was rotated 90 degrees. Following this, a [id number] technique was used to phacoemulsify the lens with a CDE of 8.11. The remaining cortex was removed with irrigation/aspiration. Provisc was instilled into the capsular bag to inflate the bag. A SN60WF, 22.0 diopter lens was placed. The remaining viscoelastic material was removed with irrigation/aspiration. Following this, the incision was found to be watertight. Besivance was instilled into the eye and a protective shield was placed over the eye. The patient returned to the postoperative recovery in stable condition. DICTATING PHYSICIAN: PRACHI BENAVIDES M.D. [id number] PHY#: [id number] ID: [id number] JOB#: [id number] ACCT: [id number] cc:PRACHI BENAVIDES M.D. > MTDVitaliy
--- NOTE | 2018-11-20 21:02 | [facility] DISCHARGE SUMMARY E ---
[facility] Discharge Summary NAME: ABRAHAM PAYTON AGE: 73Y ADMITTED: 11/20/2018 DISCHARGED: This is a 73-year-old who underwent cataract extraction of the right eye. DIAGNOSIS: Cataract right eye. She underwent surgery because she was having difficulty seeing small print. She should be on a regular diet. No bending at the waist, no heavy lifting. She should use her Vigamox, Pred-Forte, and ketorolac at 3:00 p.m. and 8:00 p.m. and sleep with a rigid shield. I will see her for her one day postop tomorrow. DICTATING PHYSICIAN: PRACHI BENAVIDES M.D. [id number] PHY#: [id number] ID: [id number] JOB#: [id number] ACCT: [id number] cc:PRACHI BENAVIDES M.D. >
== END 2018-11-20 10:24 | disposition home or self-care (01) ==
LOC: SC 08:03
PROVIDERS: ATTEND Internal Medicine
DX: H25.811 Combined forms of age-related cataract, right eye (principal); H52.4 Presbyopia; I10 Essential (primary) hypertension; Z88.1 Allergy status to other antibiotic agents; Z85.828 Personal history of other malignant neoplasm of skin; Z79.899 Other long term (current) drug therapy
CPT/HCPCS: 66984; V2632; J2250; J3490 ×3; A9270; J0171; 142

== ENCOUNTER → 2018-12-31 | Outpatient (CLI) | payer MEDICARE ==
[2018-12-31 09:33] LABS: ALANINE AMINOTRANSFERASE 21 U/L (9-52); ALBUMIN 4.7 g/dL (3.5-5.0); ALKALINE PHOSPHATASE 58 U/L (38-126); ANION GAP 9 (5-19); ASPARTATE AMINO TRANSFERASE 30 U/L (14-36); BILIRUBIN,DIRECT 0.2 mg/dL (0.0-0.4); BILIRUBIN,TOTAL 1.4 mg/dL (0.2-1.3); BLOOD UREA NITROGEN 22 mg/dL (7-20); CALCIUM 10.3 mg/dL (8.4-10.2); CARBON DIOXIDE 30 mmol/L (22-30); CHLORIDE 102 mmol/L (98-107); CHOLESTEROL 196.27 mg/dL (0-200); GLUCOSE 93 mg/dL (75-110); SODIUM 140.5 mmol/L (137-145); TOTAL PROTEIN 7.1 g/dL (6.3-8.2); TRIGLYCERIDES 63 mg/dL (<150)
[2018-12-31 09:44] LABS: DIRECT LDL 79 mg/dL (<100)
== END ==
LOC: LAB 08:47
PROVIDERS: ATTEND Internal Medicine Cardiovascular Disease
DX: I10 Essential (primary) hypertension (principal)
CPT/HCPCS: 36415; 80048; 80061; 80076

== ENCOUNTER → 2020-05-10 | Outpatient (CLI) | payer MEDICARE ==
[2020-05-10 11:51] LABS: ALBUMIN 4.4 g/dL (3.5-5.0); ALKALINE PHOSPHATASE 43 U/L (38-126); ANION GAP 6 (5-19); ASPARTATE AMINO TRANSFERASE 30 U/L (14-36); BILIRUBIN,TOTAL 1.1 mg/dL (0.2-1.3); BLOOD UREA NITROGEN 23 mg/dL (7-20); CALCIUM 9.7 mg/dL (8.4-10.2); CARBON DIOXIDE 30 mmol/L (22-30); CHLORIDE 102 mmol/L (98-107); CHOLESTEROL 199.44 mg/dL (0-200); GLUCOSE 90 mg/dL (75-110); POTASSIUM 4.3 mmol/L (3.6-5.0); TOTAL PROTEIN 6.6 g/dL (6.3-8.2); TRIGLYCERIDES 57 mg/dL (<150)
[2020-05-10 12:02] LABS: DIRECT LDL 88 mg/dL (<100)
== END ==
LOC: OD 10:46
PROVIDERS: ATTEND Internal Medicine Cardiovascular Disease
DX: I70.0 Atherosclerosis of aorta (principal); I10 Essential (primary) hypertension; I77.819 Aortic ectasia, unspecified site; R00.2 Palpitations
CPT/HCPCS: 36415; 80048; 80061; 80076

== ENCOUNTER → 2020-08-15 | Outpatient (CLI) | payer MEDICARE ==
[2020-08-15 12:37] LABS: ALBUMIN 4.9 g/dL (3.5-5.0); ALKALINE PHOSPHATASE 38 U/L (38-126); ANION GAP 11 (5-19); ASPARTATE AMINO TRANSFERASE 32 U/L (14-36); BILIRUBIN,DIRECT 0.4 mg/dL (0.0-0.4); BILIRUBIN,TOTAL 1.4 mg/dL (0.2-1.3); BLOOD UREA NITROGEN 28 mg/dL (7-20); CALCIUM 10.1 mg/dL (8.4-10.2); CARBON DIOXIDE 29 mmol/L (22-30); CHLORIDE 100 mmol/L (98-107); GLUCOSE 90 mg/dL (75-110); POTASSIUM 4.1 mmol/L (3.6-5.0)
== END ==
LOC: OD 10:28
PROVIDERS: ATTEND Physician Assistant
DX: I10 Essential (primary) hypertension (principal); R94.5 Abnormal results of liver function studies; Z79.899 Other long term (current) drug therapy
CPT/HCPCS: 36415; 80048; 80076

== ENCOUNTER → 2020-11-16 | Outpatient (CLI) | payer MEDICARE ==
[2020-11-16 11:46] LABS: ALBUMIN 4.4 g/dL (3.5-5.0); ALKALINE PHOSPHATASE 39 U/L (38-126); ANION GAP 8 (5-19); ASPARTATE AMINO TRANSFERASE 33 U/L (14-36); BILIRUBIN,DIRECT 0.2 mg/dL (0.0-0.4); BILIRUBIN,TOTAL 1.4 mg/dL (0.2-1.3); BLOOD UREA NITROGEN 24 mg/dL (7-20); CALCIUM 9.8 mg/dL (8.4-10.2); CARBON DIOXIDE 32 mmol/L (22-30); CHLORIDE 101 mmol/L (98-107); CHOLESTEROL 188.53 mg/dL (0-200); GLUCOSE 83 mg/dL (75-110); TOTAL PROTEIN 6.8 g/dL (6.3-8.2); TRIGLYCERIDES 88 mg/dL (<150)
[2020-11-16 11:57] LABS: DIRECT LDL 75 mg/dL (<100)
== END ==
LOC: OD 09:45
PROVIDERS: ATTEND Internal Medicine Cardiovascular Disease
DX: I10 Essential (primary) hypertension (principal); I70.0 Atherosclerosis of aorta; I77.819 Aortic ectasia, unspecified site; R94.5 Abnormal results of liver function studies; Z79.899 Other long term (current) drug therapy
CPT/HCPCS: 36415; 80048; 80061; 80076